=== PATIENT | female | born 1945 | race Caucasian/White ===

== ENCOUNTER 2018-05-17 01:37 | Emergency (ER) | payer MEDICARE, OTHER ==
[~2018-05-17] VITALS: Ht 1732.3 cm; Wt 54.4 kg
--- OUTSIDE RECORDS SUMMARY | ~2018-05-17 | XMS | Encounter Summary ---
Demographics + + + | Address | [address] | | | [place] [address] | + + + | Home Phone | | + + + | Preferred Language | Unknown | + + + | Marital Status | Single | + + + | Cheondoism Affiliation | Unknown | + + + | Race | Unknown | + + + | Ethnic Group | Other Race | + + + Author + + + | Author | [facility] | + + + | Organization | [facility] | + + + | Address | Unknown | + + + | Phone | Unavailable | + + + Care Team Providers + +------+ + | Care Paleontological Helper Name | Role | Phone | + +------+ + PCP | Unavailable | + +------+ + Encounter Details +--------+ + + + + | Date | Type | Department | Care Team | Description | +--------+ + + + + | 04/26/ | Documentati | UNKNOWN DEPARTMENT | Unknown . | | | 2018 | on | [address] [facility] | | | | | | [facility] | | | | | | [place], [place] | | | | | | [address] | | | +--------+ + + + + Social History + +-------+ +--------+------+ | Tobacco Use | Types | Packs/Day | Years | Date | | | | | Used | | + +-------+ +--------+------+ | Never Assessed | | | | | + +-------+ +--------+------+ + + + | Sex Assigned at | Date Recorded | | | | + + + | Not on file | | + + + as of this encounter Plan of Treatment Not on fileas of this encounter Visit Diagnoses Not on filein this encounter"
--- OUTSIDE RECORDS SUMMARY | ~2018-05-17 | XMS | Clinical Summary ---
Demographics + + + | Address | [address] | | | [place] [address] | + + + | Home Phone | | + + + | Preferred Language | Unknown | + + + | Marital Status | Single | + + + | Religion Affiliation | Unknown | + + + | Race | Unknown | + + + | Ethnic Group | Other Race | + + + Author + + + | Author | [facility] | + + + | Organization | [facility] | + + + | Address | Unknown | + + + | Phone | Unavailable | + + + Care Team Providers + +------+ + | Care Terra Cotta Roofer Helper Name | Role | Phone | + +------+ + PP | Unavailable | + +------+ + Source Comments RONIT is fully live on both [facility] and [facility] Allergies Not on File Current Medications Not on file Active Problems Not on file Encounters +--------+ + + + + | Date | Type | Specialty | Care Team | Description | +--------+ + + + + | 04/26/ | Documentati | | Unknown | | | 2018 | on | | | | +--------+ + + + + from Last 3 Months Social History + +-------+ +--------+------+ | Tobacco [...] on file | | + + + Plan of Treatment + + + + + | Health Maintenance | Due Date | Last Done | Comments | + + + + + | INFLUENZA VACCINE | | | | | (FLU SHOT) | 8 | | | + + + + + Results Not on filefrom Last 3 Months Insurance + +--------+ +--------+ + + | Payer | Benefi | Subscriber | Type | Phone | Address | | | t Plan | ID | | | | | | / | | | | | | | Group | | | | | + +--------+ +--------+ + + | MEDICARE | MEDICA | xxxxxxxxxx | Medica | +- | [address] | | | RE A & | | re | [phone] | [place] [address] | | | B | | | | | + +--------+ +--------+ + + | | TRICAR | [phone] | Indemn | [phone] | | | [phone] 4 | | ity | [phone] | | | | LIFE | | | | | + +--------+ +--------+ + + + +--------+ +--------+ + + | Guarantor Name | Accoun | Relation to | Date | Phone | Billing Address | | | t Type | Patient | of | | | | | | | | | | + +--------+ +--------+ + + | ZENON ROE | Person | Self | [birth year] Home: | [address] | | | al/Fam | | 1945 | [phone] | [place] [address] | | | niko | | | [phone] | | + +--------+ +--------+ + +"
--- OUTSIDE RECORDS SUMMARY | ~2018-05-17 | XMS | Clinical Summary ---
Demographics + + + | Address | [address] | | | [place] [address] | + + + | Home Phone | | + + + | Preferred Language | Unknown | + + + | Marital Status | Single | + + + | Sikhism Affiliation | Unknown | + + + | Race | Unknown | + + + | Ethnic Group | Other Race | + + + Author + + + | Author | [facility] | + + + | Organization | [facility] | + + + | Address | Unknown | + + + | Phone | Unavailable | + + + Care Team Providers + +------+ + | Care Clinical Social Work Therapist Name | Role | Phone | + +------+ + PP | Unavailable | + +------+ + Source Comments RONIT is fully live on both [facility] and [facility] Allergies Not on File Current Medications Not [...] | Medica | +- | [address] | | | RE A & | | re | [phone] | [place] [address] | | | B | | | [...] | | al/Fam | | 1945 | [phone] | [place] [address] | | | niko | | | [phone] | | + +--------+ +--------+ + +"
--- OUTSIDE RECORDS SUMMARY | ~2018-05-17 | XMS | Encounter Summary ---
Demographics + + + | Address | [address] | | | [place] [address] | + + + | Home Phone | | + + + | Preferred Language | Unknown | + + + | Marital Status | Single | + + + | Pentecostal Affiliation | Unknown | + + + | Race | Unknown | + + + | Ethnic Group | Other Race | + + + Author + + + | Author | [facility] | + + + | Organization | [facility] | + + + | Address | Unknown | + + + | Phone | Unavailable | + + + Care Team Providers + +------+ + | Care Puppy Sitter Name | Role | Phone | + +------+ + PCP | Unavailable | + +------+ + Encounter Details +--------+ + + + + | Date | Type | Department | Care Team | Description | +--------+ + + + + | 04/26/ | Documentati | UNKNOWN DEPARTMENT | Unknown . | | | 2018 | on | [address] [facility] | | | | | | [facility] | | | | | | [place], [place] | | | | | | [phone] | | | +--------+ + + + [...]
[~2018-05-17 01:37] MED LIST: ASPIRIN EC81 MG PO; CURCUMIN1 GM PO; IBUPROFEN600 MG PO; VITAMIN D1000 UNIT PO
--- NOTE | 2018-05-17 08:09 | EKG ---
[facility] [address] [facility] [place], [place] [address] Signed Sinus bradycardia Possible Left atrial enlargement Borderline ECG No previous ECGs available Confirmed by AUSTYN NOLASCO MD ([id number]) on 05/17/2018 8:09:20 AM Electronically Signed By: AUSTYN NOLASCO MD 05/17/18808 PATIENT NAME: ZENON ROE Electrocardiogram DATE OF : 49 PHYSICIAN: AUSTYN NOLASCO MD REPORT #: [id number] REPORT IS CONFIDENTIAL AND NOT TO BE RELEASED WITHOUT AUTHORIZATION
== END 2018-05-17 07:44 | disposition home or self-care (01) ==
LOC: ED 01:37
DX: R07.89 Other chest pain (principal); Z88.0 Allergy status to penicillin; Z88.1 Allergy status to other antibiotic agents; Z88.5 Allergy status to narcotic agent; Z79.899 Other long term (current) drug therapy
CPT/HCPCS: 71045; 80053; 84484; 85025; 85049; 85610; 85730; 93005; 93010; 99285

== ENCOUNTER 2024-07-29 09:43 | Emergency (ER) | payer OTHER, MEDICARE ==
[~2024-07-29] VITALS: Ht 157.5 cm; Wt 53.3 kg
[~2024-07-29 09:43] MED LIST changes: +ANTIVERT25 M1 PO; +ONDANSETRON ODT4 MG PO
[2024-07-29] MEDS ORDERED: DIPHTH,PERTUSS(ACELL),TET VAC 0.5 ML SYRINGE IM ONE (10:30)
[2024-07-29 12:00] VITALS: BP 141/64
[2024-07-29 13:05] LABS: BASOPHILS 1.2 % (0-2); EOSINOPHILS 0.5 % (0-6); HEMATOCRIT 40.6 % (35.0-50.0); HEMOGLOBIN 13.8 g/dL (12.0-18.0); LYMPHOCYTES 8.5 % (24-44); MCH 29.2 (27-36); MCV 85.7 fl (81-99); MONOCYTES 5.9 % (0-12); NEUTROPHILS 83.9 % (39-80); PLATELET COUNT 239 K/uL (140-440); RBC 4.74 M/ul (4.3-5.7)
[2024-07-29 13:11] LABS: INR 1.01 (0.80-1.30); PROTIME 12.6 Sec (11.2-14.2)
[2024-07-29 13:17] LABS: ALBUMIN 3.8 g/dL (3.4-5.0); ALBUMIN/GLOBULIN RATIO 1.09 (1.1-2.4); ALCOHOL, MEDICAL <3 ng/dL (<3); ALKALINE PHOSPHATASE 94 U/L (46-116); ALT (SGPT) 20 U/L (14-59); ANION GAP 11.7 (7-21); AST (SGOT) 19 U/L (15-37); BILIRUBIN, TOTAL 0.4 ng/dL (0.2-1.0); BUN/CREATININE RATIO 18.82 (6.0-28.6); CALCIUM 9.4 mg/dL (8.5-10.1); CARBON DIOXIDE 28 mmol/L (21-32); CHLORIDE 105 mmol/L (98-107); CREATININE, SERUM 0.85 mg/dL (0.55-1.02); GLOMERULAR FILTRATION RATE,EST 71 mL/min (>60); POTASSIUM 3.7 mmol/L (3.5-5.1); PROTEIN, TOTAL 7.3 g/dL (6.4-8.2); UREA NITROGEN 16 mg/dL (7-18)
[2024-07-29] MEDS ORDERED: ONDANSETRON ODT8 MG PO (16:29)
== END 2024-07-29 16:48 | disposition home or self-care (01) ==
LOC: ED 09:43
PROVIDERS: Emergency Medicine
DX: S01.81XA Laceration without foreign body of other part of head, initial encounter (principal); S06.6X0A Traumatic subarachnoid hemorrhage without loss of consciousness, initial encounter; Z23 Encounter for immunization; Z88.0 Allergy status to penicillin; Z88.5 Allergy status to narcotic agent; Z88.8 Allergy status to other drugs, medicaments and biological substances; Z79.899 Other long term (current) drug therapy; W18.30XA Fall on same level, unspecified, initial encounter
CPT/HCPCS: 12013; 36415; 70450; 80053; 85025; 85610; 90471; 90715; 99284-25; G0480

== ENCOUNTER 2024-08-23 17:43 | Emergency (ER) | payer MEDICARE, OTHER ==
[~2024-08-23] VITALS: Ht 157.5 cm; Wt 56.2 kg
[~2024-08-23 17:43] MED LIST changes: +ONDANSETRON ODT8 MG PO
--- OUTSIDE RECORDS SUMMARY | 2024-08-23 17:49 | XMS ---
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 [place] VISIT COUNT (12 MO.) [address] [place] [address] TOTAL 3 NOTE: Visits indicate total known visits. ED/UCC VISIT TRACKING (12 MO.) 08/23/2024 17:43 [facility] [place] TYPE: Emergency COMPLAINT: - NECK PAIN/FEVER 07/29/2024 09:43 [facility] [place] TYPE: Emergency COMPLAINT: - FELL DIAGNOSES: - Abrasion of right hand, initial encounter - Abrasion of unspecified part of head, initial encounter - Allergy status to narcotic agent - Allergy status to other drugs, medicaments and biological substances - Allergy status to penicillin - Encounter for immunization - Fall on same level, unspecified, initial encounter - Laceration without foreign body of other part of head, initial encounter - Other care home (current) drug therapy - Pain in right forearm - Traumatic subarachnoid hemorrhage without loss of consciousness, initial encounter 01/02/2024 09:[address] [facility] [place] TYPE: Emergency COMPLAINT: - WEAKNESS DIAGNOSES: - Allergy status to narcotic agent - Allergy status to other antibiotic agents - Allergy status to penicillin - Benign paroxysmal vertigo, unspecified ear - Weakness INPATIENT VISIT TRACKING (12 MO.) No inpatient visits to display in this time frame [email or web address]
[2024-08-23 18:30] LABS: BASOPHILS 1.2 % (0-2); EOSINOPHILS 4.7 % (0-6); HEMATOCRIT 37.5 % (35.0-50.0); HEMOGLOBIN 12.5 g/dL (12.0-18.0); LYMPHOCYTES 13.4 % (24-44); MCH 28.6 (27-36); MCHC 33.2 g/dl (30-36); MCV 86.4 fl (81-99); MONOCYTES 9.6 % (0-12); NEUTROPHILS 71.1 % (39-80); PLATELET COUNT 199 K/uL (140-440); RBC 4.35 M/ul (4.3-5.7); RDW 13.5 (10.5-15.0)
[2024-08-23 18:44] LABS: ALBUMIN 3.5 g/dL (3.4-5.0); ALBUMIN/GLOBULIN RATIO 0.97 (1.1-2.4); ANION GAP 11.9 (7-21); BILIRUBIN, TOTAL 0.2 ng/dL (0.2-1.0); BUN/CREATININE RATIO 15.15 (6.0-28.6); CREATININE, SERUM 0.99 mg/dL (0.55-1.02); POTASSIUM 3.9 mmol/L (3.5-5.1); PROTEIN, TOTAL 7.1 g/dL (6.4-8.2)
[2024-08-23] MEDS ORDERED: CYCLOBENZAPRINE10 MG PO (19:37)
[2024-08-23] MEDS ORDERED: CYCLOBENZAPRINE HCL 10 MG HOME.PACK PO ONE (19:45)
[2024-08-23 19:57] VITALS: BP 167/76
== END 2024-08-23 19:57 | disposition home or self-care (01) ==
LOC: ED 17:43
PROVIDERS: Emergency Medicine
DX: S16.1XXA Strain of muscle, fascia and tendon at neck level, initial encounter (principal); B34.9 Viral infection, unspecified; Z88.0 Allergy status to penicillin; Z88.1 Allergy status to other antibiotic agents; Z88.5 Allergy status to narcotic agent; Z79.899 Other long term (current) drug therapy; X58.XXXA Exposure to other specified factors, initial encounter
CPT/HCPCS: 36415; 70450; 72125; 80053; 85025; 99284-25